=== PATIENT | male | born 1970 | race Caucasian/White ===

== ENCOUNTER 2019-03-27 08:13 | Outpatient (CLI) | payer BC | END 2019-03-27 15:00 | disposition home or self-care (01) | LOC: LAB 08:13 | DX: E78.49 Other hyperlipidemia (principal); E11.9 Type 2 diabetes mellitus without complications; K76.89 Other specified diseases of liver; I10 Essential (primary) hypertension; N40.0 Benign prostatic hyperplasia without lower urinary tract symptoms; N39.0 Urinary tract infection, site not specified; M06.4 Inflammatory polyarthropathy; E55.9 Vitamin D deficiency, unspecified; Z12.11 Encounter for screening for malignant neoplasm of colon; D64.89 Other specified anemias ==

== ENCOUNTER → 2020-03-23 | Emergency (ER) | payer BC | END | disposition left against medical advice (07) | LOC: ER 16:15 | DX: Z53.20 Procedure and treatment not carried out because of patient's decision for unspecified reasons (principal) ==